=== PATIENT | female | born 1975 | race Caucasian/White ===

== ENCOUNTER 2024-08-28 09:58 | Outpatient (REF) | payer OTHER, SELFPAY ==
[2024-08-28 10:02] LABS: Abs Immature Grans 0.01 10^3/uL (0.0-0.06); Absolute Basophil Count 0.09 10^3/uL (0.0-0.2); Absolute Eosinophil Count 0.19 10^3/uL (0.0-0.7); Absolute Monocyte Count 0.62 10^3/uL (0.1-0.8); Absolute Neutrophil Count 5.41 10^3/uL (1.2-6.7); Eosinophils % 2.2 %; HCT 49.1 % (36.0-46.0); HGB 15.8 g/dL (11.2-15.7); Immature Grans % 0.1 %; Lymphocytes % 28.3 %; MCH 30.1 pg (27.0-33.0); MCHC 32.2 % (32.0-36.0); MCV 94 fL (80-95); MPV 10.1 fL (8.0-11.0); Neutrophils % 61.4 %; Platelet Count 294 10^3/uL (130-400); RBC 5.25 10^6/uL (3.93-5.22); WBC 8.82 10^3/uL (4.4-10.8)
[2024-08-29 07:24] LABS: IgE 5 IU/mL (<158)
== END 2024-08-28 09:59 | disposition home or self-care (01) ==
LOC: LBN 09:58
PROVIDERS: Visit Provider Physician Assistant Surgical
DX: J44.9 Chronic obstructive pulmonary disease, unspecified (principal); J45.909 Unspecified asthma, uncomplicated
CPT/HCPCS: 82785; 85025